=== PATIENT | female | born 1945 | race Asian ===

== ENCOUNTER 2022-04-30 15:48 | Emergency (ER) | payer BC ==
[~2022-04-30] VITALS: Ht 149.9 cm; Wt 68.1 kg
[2022-04-30 16:03] VITALS: BP 135/76
== END 2022-04-30 20:40 | disposition left against medical advice (07) ==
LOC: ER 15:48
DX: I10 Essential (primary) hypertension (principal); Z76.0 Encounter for issue of repeat prescription; Z53.21 Procedure and treatment not carried out due to patient leaving prior to being seen by health care provider